=== PATIENT | male | born 1955 | race Caucasian/White ===

== ENCOUNTER 2019-06-19 12:54 | Outpatient (CLI) | payer MEDICARE ==
--- NOTE | 2019-06-19 14:25 | RAD ---
CHEST 2 VIEWS: Date: 06/19/2019 No prior films available for comparison. The heart is normal in size. There is no vascular congestion, edema, or pleural effusion. No major lo bar infiltrate seen. The lungs are clear. No mediastinal abnormality appreciated. IMPRESSION: No acute thoracic findings. POS: HOME
== END 2019-06-19 12:55 | disposition home or self-care (01) ==
LOC: BURRAD 12:54
PROVIDERS: ATTEND Family Medicine
DX: R04.2 Hemoptysis (principal)
CPT/HCPCS: 71046